=== PATIENT | female | born 1995 | race Caucasian/White ===

== ENCOUNTER 2018-04-03 17:31 | Inpatient (IN) | payer OTHER ==
[~2018-04-03] VITALS: Ht 165.1 cm; Wt 95.5 kg
[2018-04-03] MEDS ORDERED: OXYTOCIN 30U/ 0.9% NaCL 500ML 500 ML IV ONE (17:58)
[2018-04-03] MEDS: D5%-LACTATED RINGERS 1,000 ML IV SCH (17:58)
[2018-04-03] MEDS ORDERED: FENTANYL PF 100 MCG/2ML IV PRN (18:00)
[2018-04-03] MEDS ORDERED: NEWBORN KIT ONE (18:27)
[2018-04-03] MEDS ORDERED: OXYTOCIN 30U/ 0.9% NaCL 500ML 500 ML ONE (18:28)
[2018-04-03 18:47] LABS: BASOPHILS # (AUTO) 0.03 x10^3/uL (0-0.1); BASOPHILS % (AUTO) 0 % (0-1); EOSINOPHILS # (AUTO) 0.02 x10^3/uL (0-0.4); EOSINOPHILS % (AUTO) 0 % (1-7); LYMPHOCYTES # (AUTO) 1.89 x10^3/uL (1-3.4); LYMPHOCYTES % (AUTO) 15 % (22-44); MD NO; MEAN CORPUSCULAR HEMOGLOBIN 30.9 pg (27.0-34.8); MEAN CORPUSCULAR HGB CONC 33.9 g/dL (32.4-35.8); MEAN CORPUSCULAR VOLUME 91.1 fL (80-100); MEAN PLATELET VOLUME 8.7 fL (7.4-10.4); MONOCYTES # (AUTO) 0.84 x10^3/uL (0.2-0.8); MONOCYTES % (AUTO) 7 % (2-9); NEUTROPHILS # (AUTO) 9.62 x10^3/uL (1.8-6.8); NEUTROPHILS % (AUTO) 78 % (42-75); PLATELET COUNT 319 x10^3/uL (130-400); RED BLOOD COUNT 4.44 x10^6/uL (3.82-5.3); RED CELL DISTRIBUTION WIDTH 13.9 % (9.6-15.2)
[2018-04-03] MEDS ORDERED: PLEASE ENTER ALLERGIES MC SCH (19:30)
[2018-04-03] MEDS: PLEASE ENTER ALLERGIES MC SCH ×4 (20:30→23:30)
[2018-04-04] MEDS ORDERED: FENTANYL PF 100 MCG/2ML ONE ×2 (00:05→02:43)
[2018-04-04] MEDS: FENTANYL PF 100 MCG/2ML IVPush PRN ×2 (00:12→02:48)
[2018-04-04] MEDS: PLEASE ENTER ALLERGIES MC SCH ×2 (00:30→01:30)
[2018-04-04] MEDS: D5%-LACTATED RINGERS 1,000 ML IV SCH ×3 (01:58→17:58)
[2018-04-04] MEDS ORDERED: LIDOCAINE/PF 1%, 30ML ONE (07:27)
[2018-04-04] MEDS ORDERED: MISOPROSTOL 200 MCG TABLET ONE (07:28)
[2018-04-04] MEDS: OXYTOCIN 30U/ 0.9% NaCL 500ML 500 ML IV SCH ×2 (08:01→18:01)
[2018-04-04] MEDS ORDERED: IBUPROFEN 600 MG TABLET ONE (08:13)
[2018-04-04] MEDS: IBUPROFEN 600 MG TABLET PO PRN ×3 (08:16→21:05)
[2018-04-04] MEDS ORDERED: CARBOPROST TROMETHAMINE 250 MCG/ML, 1ML IM PRN (08:30)
[2018-04-04] MEDS ORDERED: BISACODYL 10 MG SUPP PR PRN (08:30)
[2018-04-04] MEDS ORDERED: GLYCERIN ADULT SUPP PR PRN (08:30)
[2018-04-04] MEDS ORDERED: IBUPROFEN 800 MG TABLET PO PRN (08:30)
[2018-04-04] MEDS ORDERED: ACETAMINOPHEN 325 MG TABLET PO PRN (08:30)
[2018-04-04] MEDS ORDERED: METHYLERGONOVINE 0.2 MG/ML IM PRN (08:30)
[2018-04-04] MEDS ORDERED: OXYcodone/APAP 5/325MG TABLET PO PRN ×2 (08:30)
[2018-04-04] MEDS ORDERED: MISOPROSTOL 200 MCG TABLET PR PRN (08:30)
[2018-04-04] MEDS: PRENATAL VIT/IRON/FA 1 EACH TABLET PO SCH (09:00)
[2018-04-04 11:00] VITALS: BP 108/68
[2018-04-04 16:50] LABS: MEAN CORPUSCULAR HGB CONC 33.8 g/dL (32.4-35.8); MEAN CORPUSCULAR VOLUME 91.6 fL (80-100); MEAN PLATELET VOLUME 8.9 fL (7.4-10.4); PLATELET COUNT 301 x10^3/uL (130-400); RED BLOOD COUNT 4.28 x10^6/uL (3.82-5.3); RED CELL DISTRIBUTION WIDTH 14.1 % (9.6-15.2)
[2018-04-04 17:18] LABS: BASOPHILS # (AUTO) 0.05 x10^3/uL (0-0.1); BASOPHILS % (AUTO) 0 % (0-1); EOSINOPHILS # (AUTO) 0.01 x10^3/uL (0-0.4); EOSINOPHILS % (AUTO) 0 % (1-7); LYMPHOCYTES # (AUTO) 1.92 x10^3/uL (1-3.4); LYMPHOCYTES % (AUTO) 9 % (22-44); MD SCAN; MONOCYTES # (AUTO) 1.76 x10^3/uL (0.2-0.8); MONOCYTES % (AUTO) 8 % (2-9); NEUTROPHILS # (AUTO) 17.66 x10^3/uL (1.8-6.8); NEUTROPHILS % (AUTO) 83 % (42-75)
[2018-04-04 20:30] VITALS: BP 119/72
[2018-04-04] MEDS: DOCUSATE 100 MG CAPSULE PO PRN (21:05)
[2018-04-05 01:00] VITALS: BP 112/68
[2018-04-05 03:40] VITALS: BP 116/78
[2018-04-05] MEDS: IBUPROFEN 600 MG TABLET PO PRN ×2 (03:47→11:42)
[2018-04-05] MEDS: OXYTOCIN 30U/ 0.9% NaCL 500ML 500 ML IV SCH (04:01)
[2018-04-05 07:50] VITALS: BP 108/70
[2018-04-05] MEDS ORDERED: IBUP-1222 PO (10:45)
[2018-04-05] MEDS: DOCUSATE 100 MG CAPSULE PO PRN (11:42)
[2018-04-05] MEDS: PRENATAL VIT/IRON/FA 1 EACH TABLET PO SCH (11:42)
== END 2018-04-05 15:19 | disposition home or self-care (01) | DRG 775 ==
LOC: LDOP 17:31 → LDIP 18:40 → 2NW 04-04 10:42
PROVIDERS: ADMIT Obstetrics & Gynecology Gynecology; ATTEND Obstetrics & Gynecology Gynecology
PROC: 10907ZC Drainage of Amniotic Fluid, Therapeutic from Products of Conception, Via Natural or Artificial Opening (ICD-10-PCS; principal; 2018-04-04)
PROC: 10E0XZZ Delivery of Products of Conception, External Approach (ICD-10-PCS; 2018-04-04)
DX: O71.82 Other specified trauma to perineum and vulva (principal); Z37.0 Single live birth; Z3A.38 38 weeks gestation of pregnancy
CPT/HCPCS: 36415; 85025; 86850; 86900; J3010; J2590

== ENCOUNTER → 2020-05-27 | Outpatient (CLI) | payer OTHER ==
[~2020-05-27] MED LIST: IBUP-1222 PO
== END | disposition home or self-care (01) ==
LOC: CFH 12:12
PROVIDERS: ATTEND Clinical Nurse Specialist Women's Health
DX: N63.20 Unspecified lump in the left breast, unspecified quadrant (principal)
CPT/HCPCS: 76642

== ENCOUNTER 2021-05-05 21:25 | Inpatient (IN) | payer BC, OTHER ==
[~2021-05-05] VITALS: Ht 165.1 cm; Wt 87.0 kg
[2021-05-05 21:53] VITALS: BP 112/75
[2021-05-05] MEDS ORDERED: NEWBORN KIT ONE (23:02)
[2021-05-05] MEDS ORDERED: LACTATED RINGERS 1,000 ML IV SCH (23:30)
[2021-05-05] MEDS ORDERED: TERBUTALINE 1 MG/ML, 1ML IVPush PRN (23:30)
[2021-05-05] MEDS ORDERED: OXYTOCIN 30U/ 0.9% NaCL 500ML 500 ML IV PRN (23:30)
[2021-05-05] MEDS ORDERED: D5%-LACTATED RINGERS 1,000 ML IV SCH (23:30)
[2021-05-05] MEDS ORDERED: ONDANSETRON 2MG/ML, 2ML IVPush PRN (23:30)
[2021-05-05] MEDS ORDERED: FENTANYL PF 100 MCG/2ML IVPush PRN (23:30)
[2021-05-05] MEDS ORDERED: TERBUTALINE 1 MG/ML, 1ML SQ PRN (23:30)
[2021-05-05] MEDS ORDERED: FENTANYL PF 100 MCG/2ML IV PRN (23:30)
[2021-05-05 23:43] LABS: BASOPHILS % (AUTO) 1 % (0-1); EOSINOPHILS % (AUTO) 0 % (1-7); LYMPHOCYTES % (AUTO) 21 % (22-44); MEAN CORPUSCULAR HGB CONC 33.6 g/dL (32.4-35.8); MONOCYTES % (AUTO) 8 % (2-9); NEUTROPHILS % (AUTO) 70 % (42-75); PLATELET COUNT 298 x10^3/uL (130-400); RED BLOOD COUNT 4.08 x10^6/uL (3.82-5.3); RED CELL DISTRIBUTION WIDTH 14.3 % (9.6-15.2)
[2021-05-06] MEDS: OXYTOCIN 30U/ 0.9% NaCL 500ML 500 ML IV SCH ×2 (00:50→01:11)
[2021-05-06] MEDS ORDERED: IBUPROFEN 600 MG TABLET ONE (01:08)
[2021-05-06] MEDS: IBUPROFEN 600 MG TABLET PO PRN ×4 (01:10→22:02)
[2021-05-06] MEDS ORDERED: MISOPROSTOL 200 MCG TABLET PR PRN (01:30)
[2021-05-06] MEDS ORDERED: SIMETHICONE 80 MG CHEW TAB PO PRN (01:30)
[2021-05-06] MEDS ORDERED: OXYcodone IR 5MG TABLET PO PRN (01:30)
[2021-05-06] MEDS ORDERED: ONDANSETRON 2MG/ML, 2ML IV PRN (01:30)
[2021-05-06] MEDS ORDERED: ACETAMINOPHEN 325 MG TABLET PO PRN (01:30)
[2021-05-06] MEDS: OXYcodone/APAP 5/325MG TABLET PO PRN ×4 (03:30→22:02)
[2021-05-06 04:20] VITALS: BP 138/76
[2021-05-06] MEDS: DOCUSATE 100 MG CAPSULE PO PRN ×2 (07:07→22:02)
[2021-05-06] MEDS: PRENATAL VIT/IRON/FA 1 EACH TABLET PO SCH (07:07)
[2021-05-06 09:05] VITALS: BP 115/81
[2021-05-06 12:10] VITALS: BP 99/65
[2021-05-06 16:05] VITALS: BP 106/69
[2021-05-06 20:00] VITALS: BP 116/77
[2021-05-07] MEDS: IBUPROFEN 600 MG TABLET PO PRN (07:53)
[2021-05-07] MEDS: OXYcodone/APAP 5/325MG TABLET PO PRN ×2 (07:53→12:26)
[2021-05-07] MEDS: DOCUSATE 100 MG CAPSULE PO PRN (07:53)
[2021-05-07] MEDS: PRENATAL VIT/IRON/FA 1 EACH TABLET PO SCH (07:53)
[2021-05-07 09:38] VITALS: BP 119/76
[2021-05-07] MEDS ORDERED: OXYC1TAB14 PO (09:58)
[2021-05-07] MEDS ORDERED: IBUP-1222 PO (09:58)
[2021-05-07] MEDS ORDERED: DOCU-131 PO (09:58)
[2021-05-07] MEDS ORDERED: MEASLES,MUMPS&RUBELLA VACC/PF 0.5 ML SQ-VACC ONE ×2 (12:19→12:30)
== END 2021-05-07 13:30 | disposition home or self-care (01) | DRG 807 ==
LOC: LDOP 21:25 → LDIP 23:01 → 2NW 05-06 02:40
PROVIDERS: ADMIT Student in an Organized Health Care Education/Training Program; ATTEND Student in an Organized Health Care Education/Training Program
PROC: 10E0XZZ Delivery of Products of Conception, External Approach (ICD-10-PCS; principal; 2021-05-06)
PROC: 3E0R3BZ Introduction of Anesthetic Agent into Spinal Canal, Percutaneous Approach (ICD-10-PCS; 2021-05-06)
PROC: 00HU33Z Insertion of Infusion Device into Spinal Canal, Percutaneous Approach (ICD-10-PCS; 2021-05-06)
DX: O80 Encounter for full-term uncomplicated delivery (principal); Z37.0 Single live birth; Z3A.39 39 weeks gestation of pregnancy; Z88.0 Allergy status to penicillin; Z20.822 Contact with and (suspected) exposure to COVID-19
CPT/HCPCS: 36415; 85025; 86592; 86900; 87635; 90707; G0378; J3010; J2590; J7120